=== PATIENT | female | born 1940 | race Caucasian/White ===

== ENCOUNTER 2016-07-31 13:56 | Emergency (ER) | payer OTHER, MEDICAID ==
[~2016-07-31] VITALS: Ht 165.1 cm; Wt 52.6 kg
[~2016-07-31 13:56] MED LIST: DONE5TAB3; GLYB1.252
--- NOTE | 2016-07-31 13:56 | NUR ---
BROUGHT IN BY BLS AMBULANCE FROM [facility], TRIAGED AND REPORT GIVEN TO KENNETH
[2016-07-31 14:00] VITALS: BP 137/76; PULSE 87; RESP 19; TEMP 97.4; O2SAT 94
--- NOTE | 2016-07-31 14:00 | NUR ---
pt. brought in to the ER alert and awake from [facility] for G-tube placement, as per EMS the GTube has been misplaced, sent by staff for G tube re placement
--- NOTE | 2016-07-31 14:00 | NUR ---
Dr. cruz at bedside examining the pt.
[2016-07-31] MEDS ORDERED: GASTROGRAFIN 120 ML ONE (14:15)
--- NOTE | 2016-07-31 14:20 | NUR ---
dr. cruz at bedside for G-Tube replacement
--- NOTE | 2016-07-31 14:40 | NUR ---
Called report to Stacie at [facility]. Discussed application of moisture barrier cream to peristoma area which is reddened in addition to Keflex.
[2016-07-31 14:50] VITALS: BP 134/86; PULSE 76; RESP 18; O2SAT 99
== END 2016-07-31 14:50 | disposition home or self-care (01) ==
LOC: SED 13:56
DX: Z46.59 Encounter for fitting and adjustment of other gastrointestinal appliance and device (principal); E11.9 Type 2 diabetes mellitus without complications; I10 Essential (primary) hypertension; Z86.73 Personal history of transient ischemic attack (TIA), and cerebral infarction without residual deficits; Z86.59 Personal history of other mental and behavioral disorders
CPT/HCPCS: 43760; 74240; 99284; Q9963

== ENCOUNTER 2017-06-14 14:27 | Emergency (ER) | payer MEDICAID, OTHER ==
[~2017-06-14] VITALS: Ht 167.6 cm; Wt 56.7 kg
[~2017-06-14 14:27] MED LIST changes: -GLYB1.252
[2017-06-14 14:38] VITALS: BP_SYST 110
--- NOTE | 2017-06-14 14:43 | NUR ---
TRIAGED IN HALLWAY AWAITING BED
--- NOTE | 2017-06-14 15:25 | NUR ---
Patient to ER bed 3 to gown for evaluation. Side rails up. Report given to Lino.
--- NOTE | 2017-06-14 15:30 | NUR ---
Pt was brought in by BLS, complains of Gtube not functioning properly. Pt needs G-tube replacement. Pt denies any pain, fever, N/V. or diarrhea. Gtube site clean, dry, well approximated edges. No other injuries/complaints per patient or noted.
--- NOTE | 2017-06-14 15:40 | NUR ---
ER at bedside examining patient.
--- NOTE | 2017-06-14 15:42 | NUR ---
ER Dr. Bucio at bedside replacing G-tube for patient. Patient tolerated well.
[2017-06-14] MEDS ORDERED: GASTROGRAFIN 120 ML ONE (15:57)
--- NOTE | 2017-06-14 16:02 | NUR ---
Radiology at patient bedside, pt tolerated well.
[2017-06-14 17:04] VITALS: BP_SYST 105
--- NOTE | 2017-06-14 17:04 | NUR ---
Patient given written and verbal discharge instructions and verbalizes understanding. ER MD discussed with patient the results and treatment provided. Patient in stable condition. ID arm band removed. No Rx given. Patient educated on pain management and to follow up with PMD. Pain Scale 0. Opportunity for questions provided and answered.
== END 2017-06-14 17:04 | disposition home or self-care (01) ==
LOC: SED 14:27
DX: Z43.1 Encounter for attention to gastrostomy (principal); E11.9 Type 2 diabetes mellitus without complications; I10 Essential (primary) hypertension; F03.90 Unspecified dementia, unspecified severity, without behavioral disturbance, psychotic disturbance, mood disturbance, and anxiety; Z86.73 Personal history of transient ischemic attack (TIA), and cerebral infarction without residual deficits
CPT/HCPCS: 43760; 74000; 99284; Q9963

== ENCOUNTER 2018-02-23 06:21 | Emergency (ER) | payer OTHER, MEDICAID ==
[~2018-02-23] VITALS: Ht 165.1 cm; Wt 60.3 kg
[2018-02-23 06:21] VITALS: BP_SYST 172
[~2018-02-23 06:21] MED LIST changes: +ACET-2165 GT; -DONE5TAB3; +GABA-529 GT; +INSU100V SUBCUT; +INSU100V9 SUBCUT; +IPRA3AMP9 INH; +LISI10TA5 GT; +MAGN400T10 PO; +MOM GT; +XALEYE OP
[2018-02-23] MEDS ORDERED: GASTROGRAFIN 120 ML ONE (06:43)
[2018-02-23 07:30] VITALS: BP_SYST 117
== END 2018-02-23 07:30 | disposition home or self-care (01) ==
LOC: SED 06:21
DX: Z43.1 Encounter for attention to gastrostomy (principal); I10 Essential (primary) hypertension; E11.39 Type 2 diabetes mellitus with other diabetic ophthalmic complication; H42 Glaucoma in diseases classified elsewhere; F03.90 Unspecified dementia, unspecified severity, without behavioral disturbance, psychotic disturbance, mood disturbance, and anxiety
CPT/HCPCS: 43760; 74240; 99284; Q9963

== ENCOUNTER 2019-05-08 07:57 | Emergency (ER) | payer OTHER, MEDICAID ==
[~2019-05-08] VITALS: Ht 162.6 cm; Wt 80.7 kg
[2019-05-08 08:07] VITALS: BP_SYST 142
[2019-05-08] MEDS ORDERED: GASTROGRAFIN 120 ML ONE (08:31)
[2019-05-08 09:00] VITALS: BP_SYST 142
== END 2019-05-08 09:00 | disposition home or self-care (01) ==
LOC: SED 07:57
DX: K94.29 Other complications of gastrostomy (principal)
CPT/HCPCS: 74240; 99283; Q9963

== ENCOUNTER 2019-07-01 17:00 | Inpatient (IN) | payer OTHER, MEDICAID ==
[~2019-07-01] VITALS: Ht 165.1 cm; Wt 64.9 kg
--- NOTE | 2019-07-01 00:27 | NUR ---
Called Dr. Leong made aware of ABG results. New orders received. Will carry out as ordered. Addendum: 07/02/19 at 0058 by Reji Shaw RN Wrong Date/Time
[2019-07-01 17:00] VITALS: BP_SYST 140
--- NOTE | 2019-07-01 17:00 | NUR ---
BROUGHT IN BY [facility] FROM [facility]. PLACED IN BED #1 AND TRIAGED. REPORT GIVEN TO RAZ
--- NOTE | 2019-07-01 17:01 | NUR ---
Pt BIB ALS from [facility] for respiratory distress and no longer tracking per facility staff. Pt given breathing tx en route, #20 gauge IV to L wrist placed by ALS. SaO2 97% on non rebreather. SaO2 76% on RA. Skin hot to touch, diaphoretic, Temporal temp 97.8. G-tube noted. No other injuries/complaints noted. Will continue to monitor.
--- NOTE | 2019-07-01 17:02 | NUR ---
ER Dr. Marrero at bedside examining patient.
[2019-07-01] MEDS ORDERED: VANCOMYCIN HCL 1,000 MG in NS 250 ML IV ONE (17:30)
[2019-07-01] MEDS ORDERED: CEFEPIME 2 GM in D5W 100 ML IV ONE (17:30)
[2019-07-01] MEDS ORDERED: VANCOMYCIN HCL 1000 MG/VIAL IV ONE (17:40)
[2019-07-01 17:42] LABS: BASOPHILS % (AUTO) 0.2 % (0.0-2.0); HEMATOCRIT 33.8 % (36-48); HEMOGLOBIN 10.9 g/dL (12.0-16.0); LYMPHOCYTES # (AUTO) 0.7 K/uL (1.0-5.5); LYMPHOCYTES % (AUTO) 3.9 % (20.5-51.5); MEAN CORPUSCULAR HEMOGLOBIN 28 pg (27-31); MEAN CORPUSCULAR HGB CONC 32 % (32-36); MEAN CORPUSCULAR VOLUME 85 fL (79.0-98.0); MONOCYTES # (AUTO) 0.7 K/uL (0.0-1.0); MONOCYTES % (AUTO) 4.2 % (1.7-9.3); NEUTROPHILS # (AUTO) 15.9 K/uL (1.8-7.7); NEUTROPHILS % (AUTO) 91.7 % (40.0-70.0); PLATELET COUNT (AUTO) 278 K/uL (130-430); RED BLOOD CELL COUNT(AUTO) 3.97 MIL/uL (4.2-6.2); RED CELL DISTRIBUTION WIDTH 16.1 % (9.0-15.0); WHITE BLOOD COUNT (AUTO) 17.4 K/uL (4.8-10.8)
[2019-07-01] MEDS ORDERED: CEFEPIME 1 GM/VIAL (MAXIPIME) ONE (17:42)
[2019-07-01] MEDS ORDERED: ANT30 PO (17:43)
[2019-07-01] MEDS ORDERED: GUAI100S14 PO (17:43)
[2019-07-01] MEDS ORDERED: CAT.1 PO (17:43)
[2019-07-01] MEDS ORDERED: ONDA4TAB5 PO (17:43)
[2019-07-01] MEDS ORDERED: GLUC1KIT IJ (17:43)
[2019-07-01] MEDS ORDERED: INSU100V9 SQ ×2 (17:43)
--- NOTE | 2019-07-01 17:43 | NUR ---
Medication reconciliation completed with information provided by Collette Weber. Any prior medication reconciliation on file was reviewed and corrected.
[2019-07-01 17:52] LABS: ANION GAP 4 (5-15); CALCIUM 9.2 mg/dL (8.4-11.0); CHLORIDE 100 mmol/L (98-107); CREATININE 1.27 mg/dL (0.55-1.30); GLUCOSE 334 mg/dL (70-99); POTASSIUM 4.7 mmol/L (3.5-5.1); SODIUM SERUM 135 mmol/L (136-145); UREA NITROGEN, BLOOD 60 mg/dL (8-21)
[2019-07-01 17:56] LABS: INR 1.1 (0.8-1.2); PROTHROMBIN TIME 11.5 SECS (9.5-12.5)
[2019-07-01 17:57] LABS: ALANINE AMINOTRANSFERASE 14 U/L (12-78); ALBUMIN 2.5 g/dL (3.4-4.8); ASPARTATE AMINOTRANSFERASE 15 U/L (10-37); TOTAL BILIRUBIN 0.4 mg/dL (0.0-1.0)
--- NOTE | 2019-07-01 18:20 | NUR ---
Note undone in EDM - 07/01/19 at 1821 by EVELIN # 16 FR Elliott catheter with use of sterile technique. Immediate return of 30 cc turbid cardona/yellow urine noted. Bedside drainage bag placed below level of bladder. Urine sample collected and sent to lab. Pt tolerated procedure well. Patient arrived with elliott in place, changed due to standard of practice prior to admission. Patient unable to toilet self.
[2019-07-01 18:28] LABS: BILIRUBIN,URINE NEGATIVE (NEGATIVE); BLOOD, URINE 3+ (NEGATIVE); CLARITY/URINE TURBID (CLEAR); COLOR,URINE YELLOW (YELLOW); GLUCOSE,URINE NEGATIVE (NEGATIVE); KETONES,URINE NEGATIVE (NEGATIVE); LEUKOCYTE ESTERASE ,URINE 2+ (NEGATIVE); NITRITE, URINE NEGATIVE (NEGATIVE); PH,URINE 5.5 (5.0-8.0); PROTEIN URINE 2+ (NEGATIVE); UROBILINOGEN,URINE 0.2 (0.2-1.0)
[2019-07-01 18:32] LABS: BACTERIA,URINE MANY /HPF (None Seen); RBC,URINE 20-50 /HPF (0-3); WBC,URINE >100 /HPF (0-3)
--- NOTE | 2019-07-01 18:35 | NUR ---
Pt on non-rebreather mask. Dr. Sterling paged to possibly change admit to ICU.
[2019-07-01] MEDS ORDERED: ACETAMINOPHEN 650 MG SUPP.RECT RC ONE (19:15)
--- NOTE | 2019-07-01 19:34 | NUR ---
650 mg Tylenol given NC for 101.0 F rectal temperature
--- NOTE | 2019-07-01 20:00 | NUR ---
IV NS initiated at 150 ml/hr per verbal order by Dr. Marrero.
[2019-07-01] MEDS ORDERED: NACL 0.9% 1,000 ML IV SCH (21:14)
--- NOTE | 2019-07-01 21:51 | NUR ---
Patient will be admitted to care of Dr. Sterling. Admitted to ICU. Will go to room ICU2. Complete and up to date summary report printed. SBAR report to be given at bedside with opportunity for questions.
[2019-07-01 22:05] VITALS: BP_SYST 161
[2019-07-01 22:10] VITALS: BP_SYST 161
--- NOTE | 2019-07-01 22:10 | NUR ---
Opening Note Pt in bed, Lethargic, responsive to deep stimuli and pain. Pt is ST on the monitor, Pt has Pacemaker. On NRB mask on 100%. Pt using accessory muscles to help breath. IV sites, L wrist 20g and RFA 22g. Pt has G-tube in place clamped. No residual noted. Pt skin intact. Pt is diaphoretic at this time. Bed locked in lowest position, call light, and safety precautions in place. Will continue to monitor.
[2019-07-01] MEDS ORDERED: cloNIDine HCL 0.1 MG TABLET PO PRN (22:30)
[2019-07-01] MEDS ORDERED: ACETAMINOPHEN 325 MG TABLET GT PRN (22:30)
[2019-07-01] MEDS ORDERED: ONDANSETRON HCL 4 MG/2 ML VIAL IVP PRN (22:30)
[2019-07-01 23:00] VITALS: BP_SYST 131
[2019-07-01] MEDS ORDERED: INSULIN GLARGINE 100 UNITS/ML 10 ML VIAL SUBCUT ONE (23:00)
--- NOTE | 2019-07-01 23:35 | NUR ---
Called Dr. Leong called and made aware of ABg results. New orders received. Will carry out as ordered.
[2019-07-01] MEDS: INSULIN LISPRO SLIDING SCALE 100 UNITS/ML VIAL (humaLOG) SUBCUT PRN (23:56)
[2019-07-02] VITALS (25 sets, daily range): BP systolic 82–161
--- NOTE | 2019-07-02 | NUR ---
Pt now unresponsive, no stimuli to pain. Pt normal pulses still noted however. Pt feels cool to the touch, rectal temp of 97.5 noted. Pt placed on Bipap. Will continue to monitor.
--- NOTE | 2019-07-02 00:03 | NUR ---
Called Dr. Sterling called and made aware of Pt declining status. Made aware of Dr. Leong wanting to hold TF. Lantus held. No new orders made
--- NOTE | 2019-07-02 00:27 | NUR ---
Called Dr. Leong made aware of ABG results. New orders received. Will carry out as ordered.
[2019-07-02] MEDS ORDERED: D5/0.45 NS 1,000 ML IV SCH (00:30)
[2019-07-02] MEDS: IPRATROPIUM/ALBUTEROL SULFATE 3 ML AMPUL.NEB (DUONEB) INH SCH ×3 (01:35→20:12)
--- NOTE | 2019-07-02 03:18 | NUR ---
RN Rounds Pt in bed, unresponsive. SR on the monitor, pulses assessed and felt. BP noted, but slowly decreasing. Bipap 100% noted, Saturating in the 90s. IV infusing, elliott draining cloudy urine to gravity. Will continue to monitor.
--- NOTE | 2019-07-02 05:01 | NUR ---
RN Rounds Pt in bed asleep. Remains unresponsive to pain and stimuli. BIPAP noted @ 100%, Pt saturating in the 90s. Pt has strong carotid and femoral pulses. BP stable. Pt still cool to the touch. Rectal temp of 97.6 noted. Will continue to monitor.
[2019-07-02] MEDS: INSULIN LISPRO SLIDING SCALE 100 UNITS/ML VIAL (humaLOG) SUBCUT PRN ×3 (05:27→12:06)
[2019-07-02] MEDS: GABAPENTIN 100 MG CAPSULE GT SCH ×3 (05:30→21:35)
--- NOTE | 2019-07-02 06:07 | NUR ---
Closing Note Pt in bed, remains unresponsive, stimuli provided. Pt SR on the monitor, strong pulses felt. BIPAP at 100% noted. Pt saturating in the high 90s. IV Sites in place, C/D/I, no s/s of infiltration noted. IVF running. Pt has G-tube in place, clamped. Mercer catheter draining minimal cloudy yellow urine to gravity. No stools noted this shift. Pt skin intact, being turned Q2H. Bed locked in lowest position, call light in reach, and safety precautions in place. Will endorse to oncoming RN.
[2019-07-02 06:35] LABS: HEMATOCRIT 37.2 % (36-48); HEMOGLOBIN 11.3 g/dL (12.0-16.0); MEAN CORPUSCULAR HEMOGLOBIN 28 pg (27-31); MEAN CORPUSCULAR HGB CONC 30 % (32-36); MEAN CORPUSCULAR VOLUME 91 fL (79.0-98.0); PLATELET COUNT (AUTO) 406 K/uL (130-430); RED BLOOD CELL COUNT(AUTO) 4.09 MIL/uL (4.2-6.2); RED CELL DISTRIBUTION WIDTH 17.3 % (9.0-15.0); WHITE BLOOD COUNT (AUTO) 29.3 K/uL (4.8-10.8)
--- NOTE | 2019-07-02 07:05 | NUR ---
Nutrition Update Christian Scale 11 noted. Pt admitted for Aspiration Pneumonia, Possible Sepsis, DM Diet: Glucerna 1.5 at 30ml/hr, FWF 150ml Q6H via GT BMI: 24 kg/m2 RD to follow per nutrition care standards.
--- NOTE | 2019-07-02 07:14 | NUR ---
Endorsement Report given to oncoming RN at bedside via SBAR approach.
[2019-07-02] MEDS ORDERED: NACL 0.9% 250 ML IV ONE (07:15)
--- NOTE | 2019-07-02 07:15 | NUR ---
Opening Note Received bedside report from endorsing RN for continuation of care. Received patient resting in bed, no signs or symptoms of acute distress noted. Bed locked in lowest position and bed alarm on. Fall and safety precautions in place.
[2019-07-02] MEDS: NACL 0.9% 1,000 ML IV SCH ×3 (08:21→23:08)
[2019-07-02] MEDS: LISINOPRIL 10 MG TABLET (PRINIVIL) GT SCH (08:24)
[2019-07-02] MEDS: LANSOPRAZOLE 30 MG CAPSULE.DR GT SCH (08:24)
[2019-07-02] MEDS: NOREPINEPHRINE BITARTRATE 4 MG in NS 246 ML IV PRN ×2 (08:32→18:47)
[2019-07-02] MEDS ORDERED: NOREPINEPHRINE 4 MG/4 ML VIAL IV ONE ×4 (08:44→18:55)
[2019-07-02] MEDS: CEFEPIME 1 GM in D5W 50 ML IV SCH (08:57)
--- NOTE | 2019-07-02 09:00 | NUR ---
Dr. Sterling at bedside examining patient. No new orders. Addendum: 07/02/19 at 0933 by Daphnie Linares RN New orders received.
[2019-07-02] MEDS ORDERED: ENOXAPARIN SODIUM 40 MG/0.4 ML SYRINGE SUBCUT ONE (09:15)
[2019-07-02] MEDS ORDERED: INSULIN GLARGINE 100 UNITS/ML 10 ML VIAL SUBCUT ONE (09:15)
[2019-07-02 09:57] LABS: BAND % (MANUAL) 38 % (0-6); BASOPHILS % (MANUAL) 0 % (0-2); EOSINOPHILS % (MANUAL) 0 % (0-7); LYMPHOCYTES % (MANUAL) 6 % (20-46); METAMYELOCYTES % 1 % (0-0); MONOCYTES % (MANUAL) 5 % (0-11); MYELOCYTES % 1 % (0-0)
[2019-07-02 10:21] LABS: CHLORIDE 104 mmol/L (98-107); POTASSIUM 6.1 mmol/L (3.5-5.1); SODIUM SERUM 141 mmol/L (136-145)
[2019-07-02 10:22] LABS: ANION GAP 9 (5-15); CALCIUM 8.6 mg/dL (8.4-11.0); GLUCOSE 422 mg/dL (70-99); UREA NITROGEN, BLOOD 63 mg/dL (8-21)
[2019-07-02 10:24] LABS: ALANINE AMINOTRANSFERASE 17 U/L (12-78); ALBUMIN 2.3 g/dL (3.4-4.8); ASPARTATE AMINOTRANSFERASE 30 U/L (10-37); THYROID STIMULATING HORMONE 1.47 uIu/mL (0.34-4.82); TOTAL BILIRUBIN 0.2 mg/dL (0.0-1.0)
--- NOTE | 2019-07-02 10:32 | NUR ---
Dr. Parra at bedside examining patient. New orders received.
[2019-07-02] MEDS ORDERED: HYDROCORTISONE SOD SUCC 100 MG/2 ML VIAL IVP ONE (10:45)
--- NOTE | 2019-07-02 12:00 | NUR ---
Patient's son David at bedside. Updated on patient status and plan of care. All questions answered clearly and education provided.
[2019-07-02] MEDS ORDERED: SODIUM POLYSTYRENE SULFONATE 15 GM/60 ML UDBTL GT ONE (12:45)
--- NOTE | 2019-07-02 13:58 | NUR ---
Portfolio Mgr: Meet with pts. son who is currently visiting his mom who is unconscious. CLINICAL QUALITY ASSURANCE SPECIALIST introduced self to pts. son, David who stated he could answer questions pertaining to the DCPA.He stated his mom is not doing well and he has an apt. with a mortuary home. He has two brothers. One lives in [place] and one that resides in [place]. Son, David stated his mom has lived at [facility] for the past 4 years. He stated he did not need anything. CLINICAL QUALITY ASSURANCE SPECIALIST will remain available as needed.
--- NOTE | 2019-07-02 15:57 | NUR ---
Ultrasound at bedside for renal ultrasound.
--- NOTE | 2019-07-02 16:18 | NUR ---
Dr. Proyr at bedside examining patient. New orders received.
--- NOTE | 2019-07-02 18:00 | NUR ---
Dr. Almazan at bedside examining patient. New orders received.
--- NOTE | 2019-07-02 18:53 | NUR ---
Dr. Cornelius at bedside examining patient. New orders received.
--- NOTE | 2019-07-02 19:15 | NUR ---
Endorsement Endorsed bedside report to oncoming RN using SBAR approach for continuation of care.
--- NOTE | 2019-07-02 19:35 | NUR ---
Opening Note Pt in bed remains unresponsive to stimuli. Sternal chest rub applied, and no response noted. Pt Rt pupil fixed, Left pupil appears to have cataracts. SR on the monitor, pulses felt femoral/carotid, strong. BIPAP noted, 100%. Pt has IV sites in place running IVF. Pt also receiving Levophed @14mcg/kg/min. Pt has elliott catheter in place draining minimally. Pt has no skin issues noted. Bed locked in lowest position, call light in reach, and safety precuations in place. Will continue to monitor.
[2019-07-02] MEDS: HYDROCORTISONE SOD SUCC 100 MG/2 ML VIAL IVP SCH (21:33)
[2019-07-02] MEDS: LATANOPROST 2.5 ML DROPS (XALATAN) OP SCH (21:34)
[2019-07-02] MEDS: metroNIDAZOLE 500 mg/NS 100 ML IV SCH (21:34)
--- NOTE | 2019-07-02 23:10 | NUR ---
CHG CHG Bath given and linens changed. Pt tolerated well, BP stable. Levophed @ 14 mcg. Will continue to monitor.
[2019-07-03] VITALS (24 sets, daily range): BP systolic 79–139
--- NOTE | 2019-07-03 00:09 | NUR ---
RN Rounds Pt remains unresponsive. Levophed infusing @14mcg/kg/min. Pt tolerating well. G-tube site still clamped. Residual over 150mL noted. H2O Flush 150mL held. Pt remains cool to the touch. Will continue to monitor.
[2019-07-03] MEDS: NOREPINEPHRINE BITARTRATE 4 MG in NS 246 ML IV PRN ×6 (01:20→22:53)
[2019-07-03] MEDS: IPRATROPIUM/ALBUTEROL SULFATE 3 ML AMPUL.NEB (DUONEB) INH SCH ×2 (01:41→19:45)
--- NOTE | 2019-07-03 03:21 | NUR ---
RN Rounds Pt in bed asleep. Pt remains unresponsive. BP stable. Levophed @14mcg/kg/min. VSS, tolerating BIPAP settings. Will continue to monitor.
[2019-07-03] MEDS: metroNIDAZOLE 500 mg/NS 100 ML IV SCH ×2 (05:16→14:03)
[2019-07-03] MEDS: HYDROCORTISONE SOD SUCC 100 MG/2 ML VIAL IVP SCH ×3 (05:16→22:02)
[2019-07-03] MEDS: GABAPENTIN 100 MG CAPSULE GT SCH ×3 (05:19→22:02)
[2019-07-03] MEDS ORDERED: DEXTROSE 50% JECT 50 ML DISP.SYRIN ONE ×2 (05:39→11:36)
[2019-07-03 05:59] LABS: HEMATOCRIT 37.2 % (36-48); HEMOGLOBIN 11.1 g/dL (12.0-16.0); MEAN CORPUSCULAR HEMOGLOBIN 27 pg (27-31); MEAN CORPUSCULAR HGB CONC 30 % (32-36); MEAN CORPUSCULAR VOLUME 92 fL (79.0-98.0); PLATELET COUNT (AUTO) 336 K/uL (130-430); RED BLOOD CELL COUNT(AUTO) 4.04 MIL/uL (4.2-6.2); RED CELL DISTRIBUTION WIDTH 16.9 % (9.0-15.0)
[2019-07-03 06:04] LABS: ALANINE AMINOTRANSFERASE 18 U/L (12-78); ALBUMIN 1.9 g/dL (3.4-4.8); ANION GAP 1 (5-15); CALCIUM 8.4 mg/dL (8.4-11.0); CHLORIDE 106 mmol/L (98-107); CREATININE 2.76 mg/dL (0.55-1.30); GLUCOSE 51 mg/dL (70-99); SODIUM SERUM 136 mmol/L (136-145); UREA NITROGEN, BLOOD 65 mg/dL (8-21)
--- NOTE | 2019-07-03 06:36 | NUR ---
Closing Note Pt in bed unresponsive. SR on the monitor, pacer noted. Femoral and carotid pulses noted. Pt has BIPAP @100%. Pt has IV sites running IVF and Levophed @14mcg/kg/min. Pt has elliott in place draining mininal urine. G-tube in placed, clamped. 40mL of green residual noted. 150 mL H2O flush held. Skin intact, Pt feels cool to touch. Bed locked in lowest position, call light in reach, and safety precautions in place. Will endorse to oncoming RN.
[2019-07-03 06:46] LABS: ASPARTATE AMINOTRANSFERASE 61 U/L (10-37)
--- NOTE | 2019-07-03 06:50 | NUR ---
DR. PAPO CAREY MADE AWARE OF PTS WBCs 43. ORDERS RECEIVED AND WILL BE CARRIED OUT ORDERED.
[2019-07-03] MEDS ORDERED: SODIUM POLYSTYRENE SULFONATE 15 GM/60 ML UDBTL PO ONE (07:00)
--- NOTE | 2019-07-03 07:10 | NUR ---
Endorsement Report given to oncoming RN at bedside via SBAR approach.
--- NOTE | 2019-07-03 07:15 | NUR ---
Opening Note Received bedside report from endorsing RN for continuation of care. Received patient on BIPAP resting in bed, no signs or symptoms of acute distress noted. Bed locked in lowest position and bed alarm on. Fall and safety precautions in place.
[2019-07-03 07:16] LABS: TOTAL BILIRUBIN 0.5 mg/dL (0.0-1.0)
--- NOTE | 2019-07-03 07:45 | NUR ---
Called Dr. Schofield with a consult, Dr. Dumont contact lens molder today. Spoke with Dilia from the exchange
[2019-07-03] MEDS ORDERED: FLUCONAZOLE 200 mg/ NS 100 ML IV SCH (08:00)
[2019-07-03] MEDS ORDERED: ENOXAPARIN SODIUM 40 MG/0.4 ML SYRINGE SUBCUT SCH (09:00)
[2019-07-03] MEDS: LISINOPRIL 10 MG TABLET (PRINIVIL) GT SCH (09:00)
[2019-07-03] MEDS ORDERED: INSULIN GLARGINE 100 UNITS/ML 10 ML VIAL SUBCUT SCH (09:00)
[2019-07-03] MEDS: LANSOPRAZOLE 30 MG CAPSULE.DR GT SCH (09:12)
[2019-07-03] MEDS: CEFEPIME 1 GM in D5W 50 ML IV SCH (09:12)
[2019-07-03] MEDS: NACL 0.9% 1,000 ML IV SCH ×3 (09:14→21:00)
--- NOTE | 2019-07-03 09:51 | NUR ---
Dr. Parra at bedside examining patient. New orders received.
[2019-07-03] MEDS ORDERED: SODIUM BICARBONATE 8.4% VIAL 50 MEQ/50 ML VIAL INJ ONE (10:45)
[2019-07-03] MEDS ORDERED: CALCIUM GLUCONATE 1 GM/10 ML VIAL IVP ONE (11:00)
[2019-07-03] MEDS ORDERED: DEXTROSE 50% JECT 50 ML DISP.SYRIN IVP ONE (11:00)
[2019-07-03] MEDS ORDERED: IPRATROPIUM/ALBUTEROL SULFATE 3 ML AMPUL.NEB (DUONEB) INH ONE (11:00)
[2019-07-03] MEDS ORDERED: INSULIN REGULAR, HUMAN 100 UNITS/ML, 10 ML VIAL IVP ONE (11:00)
--- NOTE | 2019-07-03 11:03 | NUR ---
Spoke with Dr. Moura on the phone. New orders received.
[2019-07-03 11:27] LABS: ATYPICAL LYMPHOCYTES % 0 % (0-0); BAND % (MANUAL) 36 % (0-6); BASOPHILS % (MANUAL) 0 % (0-2); EOSINOPHILS % (MANUAL) 0 % (0-7); LYMPHOCYTES % (MANUAL) 11 % (20-46); METAMYELOCYTES % 2 % (0-0); MONOCYTES % (MANUAL) 7 % (0-11)
[2019-07-03] MEDS ORDERED: CALCIUM GLUCONATE 1 GM/10 ML VIAL ONE (11:36)
--- NOTE | 2019-07-03 12:43 | NUR ---
Wound Evaluation: Wound Consult ordered for Low Christian Score. Patient evaluated for a low Christian score of 12. Patient was non-verbal, non-responsive to verbal commands, and received in a [place] Bed with an IsoFlex KJ mattress with low air-loss therapy. Patient needs to be turned in bed. Skin assessment: 1. Left Dorsal Hand: Skin tear. Site has 100% pink tissue. No odor, no drainage. Eleonora-tear area intact. 2. Left Dorsal Wrist: Skin tear. Site has 100% pink tissue. No odor, scant serous drainage. Eleonora-tear area intact. Recommend: Cleanse skin tears with normal Saline. Apply SurePrep to eleonora-tear area. Cover skin tears with Oil Emulsion dressing, then non-adhesive foam dressing. Wrap with marylin wrap. Perform skin tear care daily, and as needed for dressing soiling or dislodgment. Wrap bilateral upper extremities for weeping with Inter-dry AG cloth q five days and prn for soiling. Reposition patient every 2 hours with pillow support. Elevate, off-load and float bilateral heels with one pillow lengthwise under each extremity at all times. Offload pressure areas with pillows for pressure re-distribution. Perform skin care and monitor skin integrity Q shift. Use moisture barrier cream on moisture susceptible areas QID and PRN for soiling. Maintain patient on a low air-loss mattress. Bilateral upper extremities have scant serous weeping.
[2019-07-03 12:48] LABS: ANION GAP 5 (5-15); CALCIUM 8.7 mg/dL (8.4-11.0); CHLORIDE 108 mmol/L (98-107); CREATININE 2.83 mg/dL (0.55-1.30); GLUCOSE 94 mg/dL (70-99); SODIUM SERUM 135 mmol/L (136-145); UREA NITROGEN, BLOOD 71 mg/dL (8-21)
--- NOTE | 2019-07-03 13:00 | NUR ---
Family at bedside. All questions answered and education provided.
[2019-07-03 13:08] LABS: POTASSIUM 7.1 mmol/L (3.5-5.1)
--- NOTE | 2019-07-03 13:29 | NUR ---
Dietitian Recommendations * Consider Glucerna 1.5 at 50 ml/hr, Free Water Flush: 150 ml Q6h via GT if/when medically appropriate Provides: 1800 kcal/day, 99 gm protein/day, and 1511 ml free water/day Meets: 92% of lower end of estimated caloric needs and 101% of lower end of estimated protein needs LP, RD Please refer to Nutrition Assessment for details. Addendum: 07/03/19 at [address] Amended: Links added.
[2019-07-03 13:59] LABS: ANION GAP 9 (5-15); CALCIUM 8.4 mg/dL (8.4-11.0); CHLORIDE 109 mmol/L (98-107); CREATININE 2.85 mg/dL (0.55-1.30); GLUCOSE 151 mg/dL (70-99); SODIUM SERUM 137 mmol/L (136-145); UREA NITROGEN, BLOOD 69 mg/dL (8-21)
[2019-07-03 14:17] LABS: POTASSIUM 7.7 mmol/L (3.5-5.1)
[2019-07-03] MEDS ORDERED: DOPamine PREMIX 250 ML IV PRN (15:30)
[2019-07-03] MEDS ORDERED: SODIUM BICARBONATE 8.4% JECT 50 MEQ/50 ML SYRINGE IVP ONE ×2 (16:00→16:30)
--- NOTE | 2019-07-03 16:05 | NUR ---
Dr. Moura at bedside examining patient. New orders received.
--- NOTE | 2019-07-03 16:10 | NUR ---
Dr. Sterling at bedside examining patient. New orders received.
[2019-07-03] MEDS ORDERED: SODIUM POLYSTYRENE SULFONATE 15 GM/60 ML UDBTL RC ONE (16:15)
--- NOTE | 2019-07-03 18:08 | NUR ---
Dr. Almazan at bedside examining patient. New orders received.
--- NOTE | 2019-07-03 19:15 | NUR ---
Endorsement Endorsed bedside report to oncoming RN using SBAR approach for continuation of care.
--- NOTE | 2019-07-03 19:20 | NUR ---
Opening Note Received patient report via SBAR from endorsing nurse CORAZON Arango
[2019-07-03 20:21] LABS: CALCIUM 7.7 mg/dL (8.4-11.0); CHLORIDE 112 mmol/L (98-107); CREATININE 3.33 mg/dL (0.55-1.30); GLUCOSE 78 mg/dL (70-99); SODIUM SERUM 146 mmol/L (136-145); UREA NITROGEN, BLOOD 67 mg/dL (8-21)
[2019-07-03 20:33] LABS: POTASSIUM 7.2 mmol/L (3.5-5.1)
[2019-07-03 20:34] LABS: ANION GAP < 3 (5-15)
--- NOTE | 2019-07-03 20:37 | NUR ---
PAGEJamarcus LEZAMA [phone] SPOKE WITH JOE
--- NOTE | 2019-07-03 20:45 | NUR ---
MD Call Dr. Sterling informed regarding lab values, no new orders given as patient has Hospice consult in place and family doesn't want patient to have dialysis. Nephro consult to be contacted per physician
--- NOTE | 2019-07-03 20:46 | NUR ---
VANNESSA FRANCO DR., DR. DATA DESIGNER [phone] SPOKE WITH FABIO
--- NOTE | 2019-07-03 21:55 | NUR ---
MD Call Dr. Corley informed about patient labs, new orders received
--- NOTE | 2019-07-03 21:56 | NUR ---
PAGED DR. HERNANDEZ ORNAMENTAL IRONWORKING SUPERVISOR [phone] SPOKE WITH FABIO
[2019-07-03] MEDS ORDERED: metroNIDAZOLE 500 mg/NS 100 ML IV SCH (22:00)
[2019-07-03] MEDS: LATANOPROST 2.5 ML DROPS (XALATAN) OP SCH (22:02)
[2019-07-03] MEDS ORDERED: SODIUM BICARBONATE 8.4% VIAL 150 MEQ in D5W 1,000 ML IV SCH (22:06)
[2019-07-03] MEDS ORDERED: SODIUM BICARBONATE 8.4% JECT 50 MEQ/50 ML SYRINGE IVP SCH (22:30)
[2019-07-03] MEDS ORDERED: DEXTROSE 50% JECT 50 ML DISP.SYRIN IVP SCH ×2 (22:30)
[2019-07-03] MEDS ORDERED: INSULIN REGULAR, HUMAN 100 UNITS/ML, 10 ML VIAL IV SCH (22:30)
[2019-07-03] MEDS ORDERED: SODIUM BICARBONATE 8.4% JECT 50 MEQ/50 ML SYRINGE ONE ×2 (23:10→23:12)
[2019-07-04] VITALS: BP_SYST 106
[2019-07-04] MEDS ORDERED: D5W 1,000 ML IV PRN ×2 (00:29)
[2019-07-04] MEDS ORDERED: GLUCOSE 15 GM GEL (in 37.5 GM TUBE) PO PRN ×2 (00:30)
[2019-07-04] MEDS ORDERED: DEXTROSE 50% JECT 50 ML DISP.SYRIN IVP PRN ×2 (00:30)
[2019-07-04] MEDS: IPRATROPIUM/ALBUTEROL SULFATE 3 ML AMPUL.NEB (DUONEB) INH SCH (00:39)
[2019-07-04] MEDS ORDERED: DEXTROSE 50% JECT 50 ML DISP.SYRIN ONE (00:51)
[2019-07-04 01:00] VITALS: BP_SYST 103
--- NOTE | 2019-07-04 01:15 | NUR ---
Nursing Note Patient given CHG bath, cleaned, and linens changed
[2019-07-04] MEDS ORDERED: ATROPINE SULFATE 1 MG/10 ML SYRINGE IVP ONE (01:34)
[2019-07-04] MEDS ORDERED: EPINEPHrine JECT 0.1 MG/ML SYR IVP ONE (01:34)
--- NOTE | 2019-07-04 01:45 | NUR ---
Nursing Note Patient became pulseless, code blue was called at 0120. Patient was pronounced at 0132 by ER doctor. Family contacted at 0140 and notified of patient's . Attending physician, Dr. Sterling, notified at 0150 about patient. MorphologistCarlos, contacted and body released at 0146, no case number given. Tu contacted at 0140, spoke with Kiersten and was given case # [id number]. Accepting mortuary, [facility], contacted at 0145 and informed.
--- NOTE | 2019-07-04 01:51 | NUR ---
MD AKIRA LEZAMA [phone] INFORMED THAT PATIENT
--- NOTE | 2019-07-04 02:03 | NUR ---
CONSULTING MDs CALLED INFORMED THAT PATIENT THROUGH THE ANSWERING SERVICE DR. GARCIA [phone] - SPOKE WITH JOE GARCIA [phone] MARTINO [phone] - SPOKE WITH JOE AKBAR [phone] -SPOKE WITH JOE PATRICK, [facility] [phone] - SPOKE WITH JOE
--- NOTE | 2019-07-04 03:20 | NUR ---
Nursing Note Mortuary, [facility], arrived and picked up patient's body
== END 2019-07-04 01:35 | disposition expired | DRG 871 ==
LOC: SED 17:00 → SIC 21:14
PROVIDERS: ADMIT Internal Medicine; ATTEND Internal Medicine
PROC: 5A09357 Assistance with Respiratory Ventilation, Less than 24 Consecutive Hours, Continuous Positive Airway Pressure (ICD-10-PCS; 2019-07-01)
PROC: 5A09457 Assistance with Respiratory Ventilation, 24-96 Consecutive Hours, Continuous Positive Airway Pressure (ICD-10-PCS; principal; 2019-07-02)
DX: A41.9 Sepsis, unspecified organism (principal); J96.01 Acute respiratory failure with hypoxia; E43 Unspecified severe protein-calorie malnutrition; G93.41 Metabolic encephalopathy; J69.0 Pneumonitis due to inhalation of food and vomit; J96.02 Acute respiratory failure with hypercapnia; N17.0 Acute kidney failure with tubular necrosis; R65.21 Severe sepsis with septic shock; J15.9 Unspecified bacterial pneumonia; N39.0 Urinary tract infection, site not specified; J44.0 Chronic obstructive pulmonary disease with (acute) lower respiratory infection; J44.1 Chronic obstructive pulmonary disease with (acute) exacerbation; I69.354 Hemiplegia and hemiparesis following cerebral infarction affecting left non-dominant side; E11.42 Type 2 diabetes mellitus with diabetic polyneuropathy; E11.65 Type 2 diabetes mellitus with hyperglycemia; E66.9 Obesity, unspecified; E86.0 Dehydration; E87.5 Hyperkalemia; F03.90 Unspecified dementia, unspecified severity, without behavioral disturbance, psychotic disturbance, mood disturbance, and anxiety; H54.62 Unqualified visual loss, left eye, normal vision right eye; I10 Essential (primary) hypertension; Y95 Nosocomial condition; I25.10 Atherosclerotic heart disease of native coronary artery without angina pectoris; I69.391 Dysphagia following cerebral infarction; Z74.01 Bed confinement status; Z79.4 Long term (current) use of insulin; Z93.1 Gastrostomy status; Z95.0 Presence of cardiac pacemaker; Z68.23 Body mass index [BMI] 23.0-23.9, adult; Z79.899 Other long term (current) drug therapy
CPT/HCPCS: 36415; 36600; 71045; 76770; 80048; 80053; 81000-TC; 82803-TC; 82962; 83036; 83605; 83735-TC; 83880; 84443-TC; 84484; 85007; 85025; 85027; 85610-TC; 85730-TC; 87040-TC; 87081; 87086; 94003; 94640; 94660; 96365; 96368; 99285; J0171; J0461; J0610; J0692; J1265; J1450; J1650; J1720; J1815; J3370; J3490; J7030; J7050; J7060; J7620